=== PATIENT | male | born 2000 | race African-American/Black ===

== ENCOUNTER 2024-12-15 03:00 | Emergency (ER) | payer MEDICAID, OTHER ==
[~2024-12-15] VITALS: Ht 180.3 cm; Wt 91.0 kg
[2024-12-15 03:10] VITALS: BP 150/77; TEMP 98.6
[2024-12-15] MEDS ORDERED: PRED5TAB48 MT (03:40)
[2024-12-15] MEDS ORDERED: ALBU18HF2 IH (03:40)
[2024-12-15 04:14] VITALS: PULSE 80; RESP 18; O2SAT 96
[2024-12-15] MEDS: IPRATROPIUM/ALBUTEROL 0.5-3(2.5)MG/3ML NEB HHN ONE (04:14)
== END 2024-12-15 04:43 | disposition home or self-care (01) ==
LOC: ER 03:00
DX: J45.901 Unspecified asthma with (acute) exacerbation (principal); Z76.0 Encounter for issue of repeat prescription
CPT/HCPCS: 94640; 99283; Z7610 ×2